=== PATIENT | female | born 1970 | race Caucasian/White ===

== ENCOUNTER → 2023-09-23 08:57 | Outpatient (REF) | payer BC, SELFPAY | LOC: MRI 3T 08:57 | PROVIDERS: ATTENDING PHYSICIAN Nurse Practitioner Adult Health | DX: M51.16 Intervertebral disc disorders with radiculopathy, lumbar region (principal) | CPT/HCPCS: 72148 ==

== ENCOUNTER 2025-02-08 22:32 | Emergency (ER) | payer BC, SELFPAY ==
[2025-02-08 22:36] VITALS: BP 148/86
[2025-02-08 22:47] VITALS: BMI 37.9
[2025-02-08 22:54] VITALS: BP 152/59
[2025-02-08 23:00] VITALS: BP 127/80
[2025-02-08 23:09] LABS: Hematocrit 41.0 % (37.0-47.0); Hemoglobin 13.4 g/dL (12.0-16.0); Mean Corp Hgb Conc. 32.7 g/dL (33.0-37.0); Mean Corpuscular Volume 80.9 fL (81.0-99.0); Nucleated Red Blood Cells % 0 %; Platelet Count 275 10^3/uL (130-400); Red Cell Dist. Width 14.0 % (11.5-14.5)
--- NOTE | 2025-02-08 23:19 | ED.GENMED ---
History of Present Illness
General
Chief Complaint: Cardiac Symptoms
Source: patient
Exam Limitations: none
Time Seen by Provider: 02/08/25 23:05
Nursing documentation reviewed up to this point in time: agreed with
History of Present Illness
History of Present Illness:
This is a 54-year-old woman with history of iron deficiency anemia, perimenopausal dysfunctional uterine bleeding. Maintained on MVI with iron and received 1 IV iron infusion through [facility] May 2024.
She complains of URI symptoms that began 3 days ago with fever, sinus congestion, sore throat, cough, generalized aches along with intermittent heart palpitations. Her son had very similar symptoms after he returned from a trip to [place] last week
and she just assumed that she had COVID. Neither she nor her son did home COVID testing.
She admits to feeling improved this morning but tonight generalized aches returned and she was concerned with return of heart palpitations which she describes as her heart pounding hard accompanied with some left-sided chest discomfort and a feeling
of shortness of breath.
She denies leg pain or swelling. No nausea or vomiting, no diarrhea or constipation. Appetite has been fair but she admits to resting and sleeping over the past few days with somewhat decreased oral intake.
No recent travel.
No personal nor family history of thromboembolism.
She had been having somewhat similar heart palpitations and shortness of breath for a number of months. Was following with her PCP and due to significant stress was started on as needed lorazepam. With continued symptoms, blood work performed
which showed moderate iron deficiency anemia. At that time she was referred to [facility] and received 1 IV iron treatment May 2024.
No return of palpitations until URI symptoms several days ago.
She does continue with moderately heavy, frequent menstrual periods overall unchanged. She follows regularly with online editor with follow-up appointment in the near future.
She has not been taking anything for her symptoms.
Past History
Past History
ED Past Medical History: Psychiatric (Stress/anxiety), Other (Iron deficiency anemia, dysfunctional uterine bleeding.) and Other (1 previous episode of asthmatic bronchitis-other than this no prior history of asthma); Negative Asthma
ED Past Surgical History:
Social History
Tobacco: Non-smoker
Alcohol: None
Drug: None
Personal:
Living: with family
Employment: Not employed
Family History
Family History: Other (Father with history of atrial fibrillation as well as stroke); Negative CAD
Phy Exam
Physical Exam
Physical Exam:
GENERAL: 54-year-old woman appears her stated age, awake and alert, pleasant, appears in no acute distress. Moderate nasal, stuffy voice is noted. Able to speak in full sentences. Low-grade fever�99.7 �F noted. is accompanying.
EYE: pupils equal and reactive. anicteric
NECK: Supple, nontender, no meningismus, no significant adenopathy. No JVD.
ENT: posterior pharynx is clear, oral mucosa is moist. TM clear b/l, nares have moderately boggy mildly injected turbinates without mucopus.
CARDIAC: Regular rhythm, borderline tachycardic at 100. no murmur.
LUNGS: Clear breath sounds bilaterally, no acute respiratory distress, no wheezes/rales/rhonchi
ABDOMEN: Soft, nondistended, without focal tenderness, no r/g, no cvat. normoactive BS.
NEUROLOGICAL: Alert and oriented x3, no focal neuro deficits. Gait is steady.
SKIN: Mildly hot to touch and dry, normal color, skin intact. No rash.
MUSCULOSKELETAL: No C/C/E. peripheral pulses are full and equal b/l. No palpable tenderness.
PSYCH: Normal and appropriate interaction.
Scores
PE Wells Score
Symptoms of DVT: No
No alternative diagnosis better explains the illness: No
Tachycardia with pulse > 100: Yes
Immobilization (>=3 days) or surgery within previous 4 weeks: No
Prior history of DVT or pulmonary embolism: No
Presence of hemoptysis: No
Presence of malignancy: No
Pulmonary Embolism Risk Score: 1.5
Probability of PE: Pt is low risk
Course
Orders/Labs/Results
Orders:
Orders
02/08/25 22:33
ECG [Electrocardiogram (*1)] Urgent
Reason for Study: Chest Pain
EKG- Treatment ONCE
02/08/25 22:56
Cardiac Monitoring- Treatment ONCE
IV Insert/Care/Rem.- Treatment PRN
O2 Therapy [RESP] Urgent
Titrate/Wean O2 to maintain O2 sat greater than (%): 93
Special Instructions: TO MAINTAIN CONTINUOUS O2 SATS > OR = 93%
Pulse Ox/cont/shift [RESP] Urgent
Quantity: 1
Special Instructions: CONTINUOUS
02/08/25 22:57
CR Chest - 2 Views Urgent
Comment:
Reason For Exam: suspected infection
02/08/25 22:59
COVID-19 Antigen Urgent
Source: Nasal Swab
Complete Blood Count/With Diff Urgent
Comprehensive Metabolic Panel Urgent
Lactic Acid Q4H
Comment: ON ICE, CANCEL 2ND ORDER IF FIRST LACTIC ACID LEVEL <2
Blood Culture Urgent
FERMIN Source: Blood/Venous
Specimen Description:
Influenza A+B Rapid Molecular Urgent
FERMIN Source: Nasal Swab
Specimen Description:
02/08/25 23:00
Troponin I Urgent
02/08/25 23:17
0.9% Sodium Chloride 1000 ml [Nss] 1,000 ml IV BOLUS
Acetaminophen [Tylenol] 1,000 mg PO NOW STA
Abnormal Lab Results
02/08/25
22:59
MCV 80.9 L fL
(81.0-99.0)
MCH 26.4 L pg
(27.0-31.0)
MCHC 32.7 L g/dL
(33.0-37.0)
Absolute Monos (auto) 0.9 H 10^3/uL
(0.1-0.6)
Lymphocytes % 18.9 L %
(20.5-51.1)
Monocytes % 9.6 H %
(1.7-9.3)
Glucose 103 H mg/dl
(70-99)
02/08/25 22:59
02/08/25 22:59
Vital Signs
Temp: 99.7 F
Initial and Last Documented VS:
Initial Vital Signs
Temp Pulse Resp BP Pulse Ox
98.4 F 99 16 148/86 100
02/08/25 22:36 02/08/25 22:36 02/08/25 22:36 02/08/25 22:36 02/08/25 22:36
Last Documented Vital Signs
Temp Pulse Resp BP Pulse Ox
99.7 F 83 19 110/67 93
02/08/25 23:32 02/09/25 01:15 02/09/25 01:15 02/09/25 01:00 02/09/25 01:15
MDM/Problems Addressed
Differential Diagnosis Includes:
Patient presents with several day history of URI, fever accompanied with heart palpitations, shortness of breath. I suspect symptoms are related to URI, Febrile illness.
Concern for viral URI, COVID-19, less likely influenza, other consideration is pneumonia.
ACS, tachy-arrhythmia are consideration.
History of iron deficiency anemia, dysfunctional uterine bleeding, concern for exacerbation of anemia.
No history of thromboembolism nor family history of such and no significant risk factors for thromboembolism.
Nothing in history nor exam to suspect CHF/cardiomyopathy.
EKG shows mild sinus tachycardia at 109, otherwise unremarkable.
Monitor shows normal sinus rhythm at a rate of 99-100.
Will treat fever with a dose of Tylenol, initiate IV fluids.
Labs are pending. COVID and flu testing are pending.
Will check chest x-ray.
Chronic conditions affecting care: Other (Iron deficiency anemia likely related to dysfunctional uterine bleeding)
*Radiology
Radiology exam reviewed: preliminary read by ED provider (Chest x-ray is unremarkable. Clear lung lópez. Normal heart size.)
*Pulse Oximetry
SaO2: 95
Oxygen Mode of Delivery: Room air
Patient hypoxic: no
*EKG
Interpreted by ED Provider?: Yes
Interpretation: normal
Rate: tachycardiac (Borderline tachycardia with heart rate of 101)
Rhythm: sinus and PAC's (1 unifocal PAC)
[place]: normal axis
Interval: normal interval
QRS Pattern: normal QRS
Ischemia: no ischemia
*[facility] Superintendent Interpretation
Rate: normal
Interpretation: normal
Heart Rate: 100
Rhythm: sinus
*Critical Care Note
Total Time (30-74mins, 75-104mins- exclusive of procedures): Not Applicable
Update Note
Update Note:
01:45
Patient feeling improved after a dose of Tylenol and IV fluids.
Heart rate improving to the 80s.
Labs are unremarkable. COVID and flu testing are negative. Troponin is negative.
Normal H&H. MCV and MCH are very mildly low. I do not have access to previous labs to compare.
Chest x-ray is unremarkable.
I suspect viral URI as cause for symptoms. Likely contracted from her son.
Recommend supportive measures, staying well-hydrated on a daily basis, Tylenol versus ibuprofen as needed for fever, aches.
Prompt follow-up with PCP for recheck.
Return precautions discussed.
ED Attending Note
-
Portions of this chart may have been created with voice recognition software.� Occasional wrong word or��sound alike� substitutions may have occurred due to the inherent limitations of voice recognition software.
Discharge Plan
Departure
Patient Disposition: Home (Routine Discharge)
Date of Disposition: 02/09/25
Time of Disposition: 01:44
Patient with high blood pressure during this ER visit?: No
Condition: Good
Discharge Problem:
Upper respiratory infection, viral
Instructions: Upper respiratory infection in adults - ED discharge instructions
Prescriptions:
No Action
doxycycline hyclate 100 MG capsule
100 mg PO Q12 Qty: 20 0RF
benzonatate 100 MG capsule
100 mg PO TIDPRN PRN (Reason: cough) Qty: 14 0RF
Referrals:
Terrence Morel DO [Family Provider, Family Practice] - Call in 1-3 days for appt
Interventions
Interventions:
*Risk Screen - Suicide Last Done: 02/08/25 22:36
*General Assessment Last Done: 02/08/25 22:47
*Neglect/Abuse Screening Last Done: 02/08/25 22:36
*ED- Fall Risk Assessment Last Done: 02/08/25 22:47
*ED COVID-19 Vaccine History Last Done: 02/08/25 22:47
ED- Pulmonary Assessment Last Done: 02/08/25 23:13
ED- Cardiac Assessment Last Done: 02/08/25 23:13
Discharge Date and Time
Print Language: LATVIAN
[2025-02-08 23:20] LABS: COVID-19 Antigen Negative (Negative)
[2025-02-08] MEDS: TYLENOL 1000 MG PO (23:24)
[2025-02-08] MEDS: NSS 1000 IV (23:25)
[2025-02-08 23:35] LABS: Troponin I < 0.012 ng/ml
[2025-02-08 23:38] LABS: ALT (SGPT) 18 U/L (0-35); AST (SGOT) 19 U/L (14-36); Albumin 4.7 g/dl (3.5-5.0); Alkaline Phosphatase 65 U/L (38-126); Blood Urea Nitrogen 16 mg/dl (7-17); Calcium 10.2 mg/dl (8.4-10.2); Carbon Dioxide 26 mmol/L (22-30); Chloride 107 mmol/L (98-107); Estimated Creatinine Clearance 106 ml/min; Glucose 103 mg/dl (70-99); Potassium 3.8 mmol/L (3.5-5.1); Sodium 141 mmol/L (135-145); Total Protein 7.8 g/dl (6.3-8.2); eGFR > 60.00
[2025-02-09] VITALS: BP 123/73
--- NOTE | 2025-02-09 00:36 | EDRN ---
Dr. Rosario at bedside updating patient on labs and results
[2025-02-09 01:00] VITALS: BP 110/67
== END 2025-02-09 02:16 | disposition home or self-care (01) ==
LOC: EMR 22:32
PROVIDERS: Student in an Organized Health Care Education/Training Program; EMERGENCY PHYSICIAN Emergency Medicine; FAMILY PHYSICIAN Family Medicine
DX: J06.9 Acute upper respiratory infection, unspecified (principal); R00.2 Palpitations; R07.89 Other chest pain; Z11.52 Encounter for screening for COVID-19; D50.9 Iron deficiency anemia, unspecified; Z73.3 Stress, not elsewhere classified; F41.9 Anxiety disorder, unspecified; N93.8 Other specified abnormal uterine and vaginal bleeding; Z87.01 Personal history of pneumonia (recurrent); Z88.0 Allergy status to penicillin; Z88.1 Allergy status to other antibiotic agents; Z91.040 Latex allergy status
CPT/HCPCS: 99284; 96360; 71046; 80053; 83605; 84484; 85025; 87040; 87502; 87811; 93005